=== PATIENT | female | born 1985 | race Caucasian/White ===

== ENCOUNTER 2017-09-15 17:07 | Emergency (ER) | payer BC ==
[2017-09-15] MEDS ORDERED: Ketorolac Tromethamine 60 MG/2 ML VIAL ONE (17:44)
--- NOTE | 2017-09-15 19:44 | RAD ---
THREE VIEWS RIGHT ANKLE: 09/15/17 HISTORY: 31-year-old history of right ankle pain. AP, lateral and oblique views right ankle is obtained. Three views right ankle demonstrates no evidence of right ankle fractures, subluxations or bony lesi ons. IMPRESSION: Normal three views right ankle. POS: [facility]
--- NOTE | 2017-09-15 20:25 | ULT ---
HISTORY: Right lower extremity pain and edema. RIGHT LOWER EXTREMITY VENOUS DOPPLER ULTRASOUND EVALUATION 09/15/17 Multiple longitudinal and transverse images of the right lower extremity venous system is obtained u sing a multihertz linear array transducer. Real time, color flow and spectral waveform doppler josé miguel sis is used to evaluate the right lower extremity venous system. No evidence of acute or old clot seen in the right common femoral, superficial femoral, femora profu nda, popliteal, posterior tibial vein, post trifurcation veins or right greater saphenous vein. IMPRESSION: No evidence of right lower extremity deep venous thrombosis. POS: [facility]
== END 2017-09-15 19:30 | disposition home or self-care (01) ==
LOC: ERS 17:07
DX: S93.401A Sprain of unspecified ligament of right ankle, initial encounter (principal); X58.XXXA Exposure to other specified factors, initial encounter
CPT/HCPCS: 96372; J1885